=== PATIENT | male | born 1940 | race African-American/Black ===

== ENCOUNTER 2022-12-29 17:11 | Inpatient (IN) | payer MEDICARE, OTHER ==
[~2022-12-29] VITALS: Ht 170.2 cm; Wt 75.9 kg
[2022-12-29] MEDS ORDERED: ACETAMINOPHEN 650MG SUPP PR STA (17:29)
[2022-12-29] MEDS ORDERED: SODIUM CHLORIDE 0.9% 1000ML BAG (SEPSIS BOLUS) IV ONE (17:30)
[2022-12-29] MEDS ORDERED: PIPERACILLIN/TAZ 3.375G PREMIX 50 ML IV ONE (17:30)
[2022-12-29] MEDS ORDERED: VANCOMYCIN 1G PREMIX 200 ML IV ONE (17:30)
[2022-12-29 18:40] LABS: HEMATOCRIT. 35.6 % (42.0-52.0); HEMOGLOBIN. 11.6 g/dL (14.0-18.0); MEAN CORPUSCULAR HEMOGLOBIN 25.6 pg (28.0-32.0); MEAN CORPUSCULAR VOLUME 78.7 fL (80.0-94.0); MEAN PLATELET VOLUME 8.1 fl (7.4-10.4); PLATELET 126 x1000/uL (130-400); RED BLOOD CELL COUNT 4.52 mill/uL (4.7-6.1); RED CELL DISTRIBUTION WIDTH 17.1 % (11.6-14.6)
[2022-12-29 18:50] LABS: CHLORIDE 106 mEq/L (98-107); INR 2.9; PROTHROMBIN TIME 28.7 sec (9.6-11.0)
[2022-12-29 20:12] LABS: PLATELET ESTIMATE SLIGHTLY DECREASED
[2022-12-29] MEDS ORDERED: VANCOMYCIN 1G PREMIX 200 ML IV NR (20:30)
[2022-12-29] MEDS ORDERED: PIPERACILLIN/TAZ 3.375G PREMIX 50 ML IV NR (20:45)
[2022-12-29] MEDS ORDERED: ACETAMINOPHEN 325MG TABLET PO ONE (22:15)
[2022-12-30 00:40] LABS: CLARITY URINE CLEAR (CLEAR); COLOR URINE DARK YELLOW (YELLOW); KETONES URINE NEGATIVE (NEGATIVE); LEUKOCYTE ESTERASE URINE 1+ (NEGATIVE); NITRITE URINE NEGATIVE (NEGATIVE); OCCULT BLOOD URINE 3+ (NEGATIVE); PH URINE 6.5 (4.5-8.0); PROTEIN URINE 4+ (NEGATIVE); SPECIFIC GRAVITY URINE 1.022 (1.005-1.030)
[2022-12-30] MEDS ORDERED: GUAIFENESIN 200MG/10ML SUGAR FREE UDC PO PRN (06:30)
[2022-12-30] MEDS ORDERED: IPRATROPIUM/ALBUTEROL 0.5-3(2.5)MG/3ML NEB NEB PRN (06:30)
[2022-12-30] MEDS ORDERED: DOCUSATE SODIUM 100MG CAPSULE PO PRN (06:30)
[2022-12-30] MEDS ORDERED: CLONIDINE 0.1MG TABLET PO PRN (06:30)
[2022-12-30] MEDS ORDERED: MAGNESIUM/ALUMINUM HYDROXIDE/SIMETHICONE 30ML UDC PO PRN (06:30)
[2022-12-30] MEDS ORDERED: ONDANSETRON HCL 4MG/2ML INJ IV PRN (06:30)
[2022-12-30] MEDS ORDERED: NITROGLYCERIN 0.4MG TABLET SL SL PRN (06:30)
[2022-12-30] MEDS ORDERED: ZOLPIDEM TARTRATE 5MG TABLET PO PRN (06:30)
[2022-12-30] MEDS ORDERED: ACETAMINOPHEN 325MG TABLET PO PRN ×2 (06:30)
[2022-12-30] MEDS ORDERED: TRAMADOL 50MG TABLET PO PRN (06:30)
[2022-12-30] MEDS ORDERED: IPRATROPIUM BROMIDE (0.02%) 0.5MG/2.5ML NEB HHN PRN (06:45)
[2022-12-30] MEDS ORDERED: ALBUTEROL (0.083%) 2.5MG/3ML NEB HHN PRN (06:45)
[2022-12-30] MEDS ORDERED: AZITHROMYCIN 500 MG in DEXT 5% WATER 250 ML IV SCH (08:00)
[2022-12-30] MEDS: FUROSEMIDE 40MG/4ML VIAL IVP SCH ×2 (09:00→20:59)
[2022-12-30] MEDS ORDERED: ENOXAPARIN 30MG/0.3ML SYR SUBCUT SCH (09:00)
[2022-12-30] MEDS ORDERED: CEFTRIAXONE 1 G PREMIX 50 ML IV SCH (09:00)
[2022-12-30] MEDS ORDERED: ASPIRIN 325MG EC TABLET PO SCH (09:00)
[2022-12-30 11:01] VITALS: BP 118/74
[2022-12-30] MEDS ORDERED: WARF-53 PO (11:15)
[2022-12-30] MEDS ORDERED: VIT1CAPS26 PO (11:15)
[2022-12-30] MEDS ORDERED: NALOXONE HCL 0.4MG/ML VIAL IV PRN (11:15)
[2022-12-30] MEDS ORDERED: KEPP500 MT (11:15)
[2022-12-30] MEDS ORDERED: FURO-151 MT (11:15)
[2022-12-30] MEDS ORDERED: MELA10TA2 MT (11:15)
[2022-12-30] MEDS ORDERED: CARV6.2548 MT (11:15)
[2022-12-30] MEDS: FAMOTIDINE 20MG TABLET PO SCH (12:28)
[2022-12-30] MEDS: ZINC SULFATE 220 MG ( 50 ) CAPSULE PO SCH (12:29)
[2022-12-30] MEDS: ASCORBIC ACID 500 MG TABLET PO SCH ×2 (12:29→21:00)
[2022-12-30] MEDS: GUAIFENESIN 600MG ER TABLET PO SCH ×2 (12:29→21:00)
[2022-12-30] MEDS: CEFTRIAXONE 1,000 MG in DEXTROSE 5% WATER 50 ML IV SCH (12:30)
[2022-12-30 12:34] LABS: BASOPHILS % 0.2 % (0.0-2.0); EOSINOPHILS % 0.9 % (0.0-5.0); HEMATOCRIT. 32.8 % (42.0-52.0); HEMOGLOBIN. 10.5 g/dL (14.0-18.0); LYMPHOCYTES % 13.2 % (20.0-50.0); MEAN CORPUSCULAR HEMOGLOBIN 25.6 pg (28.0-32.0); MEAN CORPUSCULAR VOLUME 79.6 fL (80.0-94.0); MEAN PLATELET VOLUME 8.6 fl (7.4-10.4); MONOCYTES % 11.8 % (2.0-8.0); NEUTROPHILS % 73.9 % (40.0-76.0); PLATELET 120 x1000/uL (130-400); RED BLOOD CELL COUNT 4.11 mill/uL (4.7-6.1); RED CELL DISTRIBUTION WIDTH 16.9 % (11.6-14.6)
[2022-12-30 12:38] VITALS: BP 131/78
[2022-12-30 12:51] LABS: INR 3.1; PROTHROMBIN TIME 31.4 sec (9.6-11.0)
[2022-12-30 14:41] LABS: T4 FREE 1.06 ng/dL (0.76-1.46)
[2022-12-30] MEDS: AZITHROMYCIN 500 MG in DEXT 5% WATER 250 ML IV SCH (15:04)
[2022-12-30 16:00] VITALS: BP 107/65
[2022-12-30 17:27] LABS: CREATINE KINASE MB FRACTION 1.3 ng/mL (0.5-3.6)
[2022-12-30 20:00] VITALS: BP 123/73
[2022-12-30 21:00] LABS: *AMPHETAMINES SCREEN URINE NEGATIVE (NEGATIVE); *BARBITURATES SCREEN URINE NEGATIVE (NEGATIVE); *BENZODIAZEPINES SCREEN URINE NEGATIVE (NEGATIVE); *COCAINE SCREEN URINE NEGATIVE (NEGATIVE); CANNABINOID URINE SCREEN NEGATIVE (NEGATIVE); METHADONE URINE SCREEN NEGATIVE (NEGATIVE); OPIATES URINE SCREEN NEGATIVE (NEGATIVE); PHENCYCLIDINE URINE SCREEN NEGATIVE (NEGATIVE)
[2022-12-30 21:17] LABS: FOLIC ACID (FOLATE) SERUM 5.3 ng/mL (>5.38)
[2022-12-30 22:11] LABS: BASOPHILS % 0.4 % (0.0-2.0); EOSINOPHILS % 0.4 % (0.0-5.0); HEMATOCRIT. 32.2 % (42.0-52.0); HEMOGLOBIN. 10.5 g/dL (14.0-18.0); LYMPHOCYTES % 10.6 % (20.0-50.0); MEAN CORPUSCULAR HEMOGLOBIN 26.2 pg (28.0-32.0); MEAN CORPUSCULAR VOLUME 80.4 fL (80.0-94.0); MEAN PLATELET VOLUME 9.1 fl (7.4-10.4); NEUTROPHILS % 77.6 % (40.0-76.0); PLATELET 116 x1000/uL (130-400); RED BLOOD CELL COUNT 4.01 mill/uL (4.7-6.1); RED CELL DISTRIBUTION WIDTH 16.8 % (11.6-14.6)
[2022-12-31] VITALS (7 sets, daily range): BP systolic 99–154; BP diastolic 69–95
[2022-12-31 02:18] LABS: CREATINE KINASE 78 IU/L (39-308); CREATINE KINASE MB FRACTION < 1.0 ng/mL (0.5-3.6)
[2022-12-31 06:17] LABS: INR 3.2; PROTHROMBIN TIME 32.1 sec (9.6-11.0)
[2022-12-31 06:19] LABS: BASOPHILS % 0.4 % (0.0-2.0); EOSINOPHILS % 0.8 % (0.0-5.0); HEMATOCRIT. 33.3 % (42.0-52.0); LYMPHOCYTES % 9.8 % (20.0-50.0); MEAN CORPUSCULAR HEMOGLOBIN 26.7 pg (28.0-32.0); MEAN CORPUSCULAR VOLUME 81.2 fL (80.0-94.0); MEAN PLATELET VOLUME 8.5 fl (7.4-10.4); MONOCYTES % 10.8 % (2.0-8.0); NEUTROPHILS % 78.2 % (40.0-76.0); PLATELET 118 x1000/uL (130-400); RED BLOOD CELL COUNT 4.11 mill/uL (4.7-6.1); RED CELL DISTRIBUTION WIDTH 16.7 % (11.6-14.6)
[2022-12-31 07:42] LABS: CHLORIDE 104 mEq/L (98-107)
[2022-12-31] MEDS: FUROSEMIDE 40MG/4ML VIAL IVP SCH ×2 (09:44→20:11)
[2022-12-31] MEDS: ASCORBIC ACID 500 MG TABLET PO SCH ×2 (09:44→20:11)
[2022-12-31] MEDS: ZINC SULFATE 220 MG ( 50 ) CAPSULE PO SCH (09:44)
[2022-12-31] MEDS: GUAIFENESIN 600MG ER TABLET PO SCH ×2 (09:44→20:11)
[2022-12-31] MEDS: FAMOTIDINE 20MG TABLET PO SCH (09:44)
[2022-12-31] MEDS: CEFTRIAXONE 1,000 MG in DEXTROSE 5% WATER 50 ML IV SCH (12:52)
[2022-12-31] MEDS: AZITHROMYCIN 500 MG in DEXT 5% WATER 250 ML IV SCH (14:05)
[2023-01-01] VITALS: BP 141/54
== END 2023-01-01 02:03 | disposition short-term general hospital (02) | DRG 871 ==
LOC: ER 17:11 → 7WST 12-30 06:13 → EDBEDREQ 12-30 06:17 → EDBEDREQTM 12-30 06:17
PROVIDERS: ADMIT Internal Medicine; ATTEND Internal Medicine
DX: A41.9 Sepsis, unspecified organism (principal); G92.8 Other toxic encephalopathy; I21.4 Non-ST elevation (NSTEMI) myocardial infarction; J18.9 Pneumonia, unspecified organism; N17.0 Acute kidney failure with tubular necrosis; E44.0 Moderate protein-calorie malnutrition; Z20.822 Contact with and (suspected) exposure to COVID-19; D63.8 Anemia in other chronic diseases classified elsewhere; E83.51 Hypocalcemia; F03.90 Unspecified dementia, unspecified severity, without behavioral disturbance, psychotic disturbance, mood disturbance, and anxiety; I11.0 Hypertensive heart disease with heart failure; I50.9 Heart failure, unspecified; R65.20 Severe sepsis without septic shock; Z86.73 Personal history of transient ischemic attack (TIA), and cerebral infarction without residual deficits; Z68.26 Body mass index [BMI] 26.0-26.9, adult
CPT/HCPCS: 36415; 71045; 80053; 80061; 80305; 81003; 82550; 82553; 82607; 82746; 83036; 83540; 83550; 83605; 83735; 83880; 84100; 84145; 84439; 84443; 84484; 85025; 87426; 87804; 93005; 93306; 93970; 99285; C9803; J0456; J0696; J1940; J2543; J3370; J7030; J7060

== ENCOUNTER 2024-05-02 14:34 | Inpatient (IN) | payer MEDICARE, OTHER ==
[~2024-05-02] VITALS: Ht 170.2 cm; Wt 77.4 kg
[~2024-05-02 14:34] MED LIST: CARV6.2548 MT; FURO-151 MT; KEPP500 MT; MELA10TA2 MT; VIT1CAPS26 PO; WARF-53 PO
[2024-05-02] MEDS ORDERED: IOHEXOL-350 100 ML BOTTLE ONE (14:56)
[2024-05-02 16:00] LABS: DIFFERENTIAL COMMENT 1; HEMATOCRIT. 37.5 % (42.0-52.0); HEMOGLOBIN. 12.1 g/dL (14.0-18.0); MEAN CORPUSCULAR HEMOGLOBIN 26.8 pg (28.0-32.0); MEAN CORPUSCULAR HGB CONC 32.2 g/dL (31.0-37.0); MEAN CORPUSCULAR VOLUME 83.2 fL (80.0-94.0); MEAN PLATELET VOLUME 8.3 fl (7.4-10.4); PLATELET 138 x1000/uL (130-400); RED BLOOD CELL COUNT 4.51 mill/uL (4.7-6.1); RED CELL DISTRIBUTION WIDTH 17.5 % (11.6-14.6); WHITE BLOOD COUNT 7.1 x1000/uL (4.5-11.0)
[2024-05-02 16:08] LABS: CHLORIDE 104 mEq/L (98-107); POTASSIUM 4.1 mEq/L (3.5-5.1); SODIUM 139 mEq/L (136-145)
[2024-05-02 16:09] LABS: CALCIUM 8.6 mg/dL (8.7-10.4); CARBON DIOXIDE 30 mEq/L (21-32)
[2024-05-02 16:11] LABS: INR 2.1; PROTHROMBIN TIME 21.9 sec (9.6-11.0)
[2024-05-02 16:14] LABS: CREATININE 2.2 mg/dL (0.6-1.3); GLUCOSE 137 mg/dL (70-105); UREA NITROGEN BLOOD 24 mg/dL (9-23)
[2024-05-02 16:22] LABS: ETHANOL BLOOD < 10 mg/dL (<10); TROPONIN I HIGH SENSITIVITY 98 ng/L (3.0-53)
[2024-05-02] MEDS: AZITHROMYCIN 500MG/250ML 250 ML IV SCH (16:34)
[2024-05-02] MEDS: SODIUM CHLORIDE 0.9% 1,000 ML IV ONE (16:35)
[2024-05-02 17:24] LABS: PLATELET ESTIMATE NORMAL
[2024-05-02] MEDS: CEFTRIAXONE 2GM/50ML 50 ML IV ONE (17:42)
[2024-05-02 18:16] LABS: BG BASE EXCESS 0.8 mmol/L (-2.0-2.0); BG CARBOXYHEMOGLOBIN 0.8 % (0.5-1.5); BG DEOXYHEMOGLOBIN 9.3 % (0.0-5.0); BG FRACTION INSPIRED OXYGEN 32; BG HCO3 ACT 25.8 mmol/L (22.0-26.0); BG METHEMOGLOBIN 0.1 % (0.0-1.5); BG OXYGEN SATURATION 90.6 % (92.0-98.5); BG OXYHEMOGLOBIN 89.8 % (94.0-97.0); BG PCO2 42.6 mmHg (35.0-45.0); BG PO2 61.1 mmHg (75.0-100.0); BG SAMPLE SITE RIGHT RADIAL; BG TOTAL HEMOGLOBIN 12.1 g/dL (12.0-18.0); BG VENT MODE NASAL CANNULA
[2024-05-02] MEDS ORDERED: GUAIFENESIN 200MG/10ML SUGAR FREE UDC PO PRN (19:00)
[2024-05-02] MEDS ORDERED: DOCUSATE SODIUM 100MG CAPSULE PO PRN (19:00)
[2024-05-02] MEDS ORDERED: NITROGLYCERIN 0.4MG TABLET SL SL PRN (19:00)
[2024-05-02] MEDS ORDERED: ONDANSETRON HCL 4MG/2ML INJ IV PRN (19:00)
[2024-05-02] MEDS ORDERED: IPRATROPIUM/ALBUTEROL 0.5-3(2.5)MG/3ML NEB NEB PRN (19:00)
[2024-05-02] MEDS ORDERED: CLONIDINE 0.1MG TABLET PO PRN (19:00)
[2024-05-02] MEDS ORDERED: ACETAMINOPHEN 325MG TABLET PO PRN ×2 (19:00)
[2024-05-02] MEDS ORDERED: MAGNESIUM/ALUMINUM HYDROXIDE/SIMETHICONE 30ML UDC PO PRN (19:00)
[2024-05-02] MEDS ORDERED: ZOLPIDEM TARTRATE 5MG TABLET PO PRN (19:00)
[2024-05-02] MEDS ORDERED: ENOXAPARIN 30MG/0.3ML SYR SUBCUT SCH ×2 (19:30→20:00)
[2024-05-02] MEDS: PANTOPRAZOLE SODIUM 40 MG/VIAL IV SCH (19:40)
[2024-05-02] MEDS: LEVETIRACETAM 500MG PREMIX 100 ML IV SCH (20:54)
[2024-05-02] MEDS: FUROSEMIDE 40MG/4ML VIAL IVP SCH (20:54)
[2024-05-02] MEDS: WARFARIN SODIUM 5MG TABLET PO NR (21:39)
[2024-05-02 22:16] LABS: CLARITY URINE CLEAR (CLEAR); COLOR URINE RED (YELLOW); GLUCOSE URINE NEGATIVE (NEGATIVE); KETONES URINE NEGATIVE (NEGATIVE); LEUKOCYTE ESTERASE URINE TRACE (NEGATIVE); NITRITE URINE NEGATIVE (NEGATIVE); OCCULT BLOOD URINE 3+ (NEGATIVE); PH URINE 7.5 (4.5-8.0); PROTEIN URINE TRACE (NEGATIVE); SPECIFIC GRAVITY URINE 1.009 (1.005-1.030)
[2024-05-02 22:24] LABS: *AMPHETAMINES SCREEN URINE NEGATIVE (NEGATIVE); *BARBITURATES SCREEN URINE NEGATIVE (NEGATIVE); *BENZODIAZEPINES SCREEN URINE NEGATIVE (NEGATIVE); *COCAINE SCREEN URINE NEGATIVE (NEGATIVE); CANNABINOID URINE SCREEN NEGATIVE (NEGATIVE); ECSTASY MDMA SCREEN URINE NEGATIVE (NEGATIVE); METHADONE URINE SCREEN NEGATIVE (NEGATIVE); OPIATES URINE SCREEN NEGATIVE (NEGATIVE); PHENCYCLIDINE URINE SCREEN NEGATIVE (NEGATIVE)
[2024-05-02 22:29] LABS: BACTERIA URINE TRACE; RBC URINE TNTC /hpf (0-2); SQUAMOUS EPITHELIAL CELL URINE FEW /lpf (RARE/1+); WBC URINE 0-2 /hpf (0-2)
[2024-05-02 23:13] VITALS: BP 138/98; PULSE 64; RESP 17; TEMP 97.9
[2024-05-03] VITALS (7 sets, daily range): BP systolic 124–138; BP diastolic 84–98; PULSE 57–70; RESP 14–18; TEMP 97.8–98.7; O2SAT 94
[2024-05-03 00:28] LABS: IRON 66 ug/dL (65-175); TRIGLYCERIDE 99 mg/dL (0-150)
[2024-05-03 00:29] LABS: LDL CHOLESTEROL 59 mg/dL (5-100)
[2024-05-03 00:30] LABS: HDL CHOLESTEROL 40 mg/dL (>55)
[2024-05-03 00:31] LABS: CHOLESTEROL 110 mg/dL (<200); TOTAL IRON BINDING CAPACITY 269 ug/dl (250-425)
[2024-05-03 00:33] LABS: T4 FREE 1.08 ng/dL (0.89-1.76); THYROID STIMULATING HORMONE 1.98 uIU/mL (0.55-4.78)
[2024-05-03 00:38] LABS: VITAMIN B12 SERUM 227 pg/mL (211-911)
[2024-05-03 00:39] LABS: FOLIC ACID (FOLATE) SERUM 12.73 ng/mL (>5.38)
[2024-05-03 06:19] LABS: AMMONIA 21 uMol/L (<32)
[2024-05-03 06:40] LABS: BASOPHILS % 0.3 % (0.0-2.0); HEMOGLOBIN. 10.9 g/dL (14.0-18.0); MEAN CORPUSCULAR HEMOGLOBIN 26.8 pg (28.0-32.0); MEAN CORPUSCULAR VOLUME 83.6 fL (80.0-94.0); MEAN PLATELET VOLUME 8.3 fl (7.4-10.4); MONOCYTES % 12.6 % (2.0-8.0); NEUTROPHILS % 73.1 % (40.0-76.0); PLATELET 126 x1000/uL (130-400); RED BLOOD CELL COUNT 4.07 mill/uL (4.7-6.1); RED CELL DISTRIBUTION WIDTH 17.2 % (11.6-14.6); WHITE BLOOD COUNT 5.1 x1000/uL (4.5-11.0)
[2024-05-03 06:42] LABS: D-DIMER 1.41 mg/L FEU (<0.50); INR 2.1; PROTHROMBIN TIME 21.9 sec (9.6-11.0)
[2024-05-03 06:43] LABS: CREATINE KINASE MB FRACTION 0.8 ng/mL (0.5-3.6)
[2024-05-03 06:51] LABS: CHLORIDE 107 mEq/L (98-107); POTASSIUM 3.9 mEq/L (3.5-5.1); SODIUM 139 mEq/L (136-145)
[2024-05-03 06:53] LABS: CARBON DIOXIDE 27 mEq/L (21-32)
[2024-05-03 06:54] LABS: CALCIUM 8.4 mg/dL (8.7-10.4)
[2024-05-03 06:58] LABS: GLUCOSE 84 mg/dL (70-105)
[2024-05-03 06:59] LABS: ALANINE AMINOTRANSFERASE 22 IU/L (10-49); UREA NITROGEN BLOOD 18 mg/dL (9-23)
[2024-05-03 07:00] LABS: ASPARTATE AMINOTRANSFERASE 16 IU/L (<34)
[2024-05-03 07:01] LABS: BILIRUBIN TOTAL 1.7 mg/dL (0.1-1.0); PHOSPHORUS 2.7 mg/dL (2.5-4.9); PROTEIN TOTAL 5.5 g/dL (6.0-8.3)
[2024-05-03] MEDS: ASPIRIN 81MG EC TABLET PO SCH (09:15)
[2024-05-03] MEDS: LEVETIRACETAM 500MG PREMIX 100 ML IV SCH (09:35)
[2024-05-03 10:54] LABS: TROPONIN I HIGH SENSITIVITY 122 ng/L (3.0-53)
[2024-05-03] MEDS ORDERED: AZITHROMYCIN 500 MG in DEXT 5% WATER 250 ML IV SCH (16:00)
[2024-05-03] MEDS: AZITHROMYCIN 500MG/250ML 250 ML IV SCH (16:26)
[2024-05-03] MEDS: CEFTRIAXONE 1GM/50ML 50 ML IV SCH (16:31)
[2024-05-03] MEDS ORDERED: CEFTRIAXONE 1GM/50ML 50 ML IV SCH (17:00)
[2024-05-03] MEDS: WARFARIN SODIUM 5MG TABLET PO NR (20:47)
[2024-05-03] MEDS: ATORVASTATIN CALCIUM 40MG TABLET PO SCH (20:47)
== END 2024-05-03 22:10 | disposition short-term general hospital (02) | DRG 91 ==
LOC: ER 14:34 → EDBEDREQTM 17:58 → EDBEDREQ 17:58 → EDBEDREQSVC 17:58 → 3WST 22:44
PROVIDERS: ADMIT Internal Medicine; ATTEND Internal Medicine
DX: G92.8 Other toxic encephalopathy (principal); I21.4 Non-ST elevation (NSTEMI) myocardial infarction; I50.41 Acute combined systolic (congestive) and diastolic (congestive) heart failure; I13.0 Hypertensive heart and chronic kidney disease with heart failure and stage 1 through stage 4 chronic kidney disease, or unspecified chronic kidney disease; D63.8 Anemia in other chronic diseases classified elsewhere; Z20.822 Contact with and (suspected) exposure to COVID-19; F03.90 Unspecified dementia, unspecified severity, without behavioral disturbance, psychotic disturbance, mood disturbance, and anxiety; G40.909 Epilepsy, unspecified, not intractable, without status epilepticus; N18.9 Chronic kidney disease, unspecified; Z79.01 Long term (current) use of anticoagulants; Z79.899 Other long term (current) drug therapy; Z86.73 Personal history of transient ischemic attack (TIA), and cerebral infarction without residual deficits
CPT/HCPCS: 36415; 36600; 70496; 70498; 71045; 76770; 80048; 80053; 80061; 80305; 80320; 81003; 82140; 82375; 82550; 82553; 82607; 82746; 82805; 82962; 83036; 83540; 83550; 83605; 83735; 83880; 84100; 84145; 84439; 84443; 84484; 85025; 85379; 86850; 86900; 87426; 93005; 93306; 93970; 97162; 97166; 99291; 99292; J0456; J0696; J1940; J1953; J2470; J7030; Q9967; G0480